=== PATIENT | female | born 1965 | race Caucasian/White ===

== ENCOUNTER 2017-04-24 11:27 | Outpatient (CLI) | payer OTHER | END 2017-04-24 19:38 | disposition home or self-care (01) | LOC: SMA 11:27 | PROVIDERS: ATTEND Family Medicine | DX: Z12.31 Encounter for screening mammogram for malignant neoplasm of breast (principal) | CPT/HCPCS: G0202 ==

== ENCOUNTER 2019-12-16 08:06 | Outpatient (CLI) | payer OTHER | END 2019-12-16 20:45 | disposition home or self-care (01) | LOC: SMA 08:06 | DX: Z12.31 Encounter for screening mammogram for malignant neoplasm of breast (principal) | CPT/HCPCS: 77067 ==

== ENCOUNTER 2021-09-27 09:05 | Outpatient (CLI) | payer OTHER | END 2021-09-27 20:07 | disposition home or self-care (01) | LOC: SMA 09:05 | PROVIDERS: ATTEND Family Medicine | DX: Z12.31 Encounter for screening mammogram for malignant neoplasm of breast (principal) | CPT/HCPCS: 77067 ==